=== PATIENT | male | born 1945 | race Caucasian/White ===

== ENCOUNTER → 2016-05-29 | Outpatient (CLI) | payer OTHER ==
[~2016-05-29] MED LIST: ASPEC81 PO; CLB200 PO; HYDR12.55 PO; LISI-461 PO; RXC5 PO; SULF800T23 PO
--- NOTE | 2016-05-29 10:11 | DIAGNOSTIC IMAGING REPORT ---
Venous Doppler right leg RIGHT VENOUS DOPP LOWER EXT UNILAT CLINICAL HISTORY: RIGHT LEG PAIN Right pain. Edema. TECHNIQUE: Venous Doppler COMPARISON STUDY: 03/02/2016 FINDINGS: Normal study IMPRESSION: Normal study Electronically signed by: Abraham Pryor M.D. 05/29/2016 10:09 AM Dictated Date/Time: 05/29/2016 10:09 AM
== END | disposition home or self-care (01) ==
LOC: C.ULTR 09:27
PROVIDERS: ATTEND Internal Medicine
DX: R20.0 Anesthesia of skin (principal); M79.89 Other specified soft tissue disorders; M79.604 Pain in right leg

== ENCOUNTER → 2017-04-11 | Outpatient (CLI) | payer OTHER ==
[~2017-04-11] MED LIST changes: -SULF800T23 PO
[2017-04-11 09:39] LABS: BASO % 0.8 %; BASO ABS # 0.05 K/uL (0-0.2); COMPLETE YES; EOS % 5.8 %; HEMATOCRIT 48.1 % (42-52); IG% 0.2 %; LYMPH ABS # 1.17 K/uL (1.2-3.4); MEAN CELL VOLUME 90.1 fL (80-100); MEAN CORPUSCULAR HEMOGLOBIN 31.5 pg (25-34); MEAN CORPUSCULAR HGB CONC 34.9 g/dl (32-36); MONO % 8.9 %; NEUT % 65.3 %; PLATELET COUNT 179 K/uL (130-400); RED BLOOD COUNT 5.34 M/uL (4.7-6.1); WHITE BLOOD COUNT 6.16 K/uL (4.8-10.8)
[2017-04-11 09:50] LABS: ESTIMATED AVERAGE GLUCOSE 157 mg/dl; HA1C FLAG Normal (Normal)
[2017-04-11 10:21] LABS: BLOOD UREA NITROGEN 22 mg/dl (7-18); GLUCOSE 140 mg/dl (70-99)
[2017-04-11 10:22] LABS: ALT/SGPT 36 U/L (12-78); AST/SGOT 18 U/L (15-37); BUN/CREATININE RATIO 16.6 (10-20); CALCIUM 8.8 mg/dl (8.5-10.1); CARBON DIOXIDE 27 mmol/L (21-32); CHLORIDE 99 mmol/L (98-107); CHOLESTEROL 175 mg/dl (0-200); CREATININE 1.31 mg/dl (0.60-1.40); LYME DISEASE AB IGG NEG (NEG); LYME DISEASE AB IGM NEG (NEG); SODIUM 134 mmol/L (136-145); TRIGLYCERIDES 68 mg/dl (0-150); VERY LOW DENSITY LIPOPROT CALC 14 mg/dl
[2017-04-11 10:33] LABS: ALB/GLOB RATIO 1.8 (0.9-2); ALKALINE PHOSPHATASE 65 U/L (45-117); CHOLESTEROL/HDL RATIO 2.8; HDL CHOLESTEROL 62 mg/dl; LDL CHOLESTEROL CALCULATED 99 mg/dl
== END | disposition home or self-care (01) ==
LOC: C.LAB 08:55
PROVIDERS: ATTEND Internal Medicine Geriatric Medicine
DX: I10 Essential (primary) hypertension (principal); E78.5 Hyperlipidemia, unspecified; E11.9 Type 2 diabetes mellitus without complications; T84.59XA Infection and inflammatory reaction due to other internal joint prosthesis, initial encounter; G62.9 Polyneuropathy, unspecified; N40.3 Nodular prostate with lower urinary tract symptoms